=== PATIENT | male | born 1955 | race Two or more races ===

== ENCOUNTER 2021-05-29 14:07 | Inpatient (IN) | payer MEDICAID, OTHER ==
[~2021-05-29] VITALS: Ht 167.6 cm; Wt 94.7 kg
[2021-05-29] MEDS ORDERED: HYDROcodone-ACET 5/325MG TAB PO ONE (14:30)
[2021-05-29] MEDS ORDERED: HYDROmorphone HCL 2 MG/ML VL IV ONE (15:15)
[2021-05-29] MEDS ORDERED: ONDANSETRON HCL 4 MG/2 ML VIAL IV ONE (15:15)
[2021-05-29] MEDS ORDERED: SODIUM CHLORIDE 0.9% 1,000 ML IV ONE ×3 (16:00→17:45)
[2021-05-29] MEDS ORDERED: SODIUM CHLORIDE 0.9% 500 ML IVB ONE (16:00)
[2021-05-29 16:57] LABS: Basophils # (auto) 0.1 10 ^3/uL (0-0.2); Basophils % (auto) 0.6 % (0.0-2.0); Eosinophils # (auto) 0.1 10 ^3/uL (0-0.8); Hemoglobin 12.5 g/dL (13.5-17.5); Lymphocytes # (auto) 1.3 10 ^3/uL (0.4-5.4); Lymphocytes % (auto) 10.4 % (10.0-50.0); Mean Corpuscular Hemoglobin 28.3 pg (28.0-32.0); Mean Corpuscular Hgb Conc. 33.9 g/dL (32.0-36.0); Mean Corpuscular Volume 83.7 fL (80.0-100.0); Monocytes # (auto) 0.4 10 ^3/uL (0-1.3); Monocytes % (auto) 3.4 % (0.0-12.0); Neutrophils # (auto) 10.2 10 ^3/uL (1.6-8.6); Neutrophils % (auto) 84.6 % (37.0-80.0); Red Blood Cells 4.42 10^6/uL (4.5-5.90); Red Cell Distribution Width 15.1 % (11.8-14.3)
[2021-05-29 17:12] LABS: INR 0.97 (0.9-1.15); Partial Thromboplastin Time 25.6 sec (23.6-33.0)
[2021-05-29 17:13] LABS: Albumin 2.7 g/dL (3.4-5.0); Calcium 8.6 mg/dL (8.5-10.1); Magnesium 2.3 mg/dL (1.6-2.6); Potassium 4.2 mmol/L (3.5-5.1)
[2021-05-29 17:16] LABS: BUN/Creatinine Ratio 14.2; Bilirubin, Total 0.7 mg/dL (0.2-1.0); Total Protein 6.6 g/dL (6.4-8.2)
[2021-05-29] MEDS ORDERED: InsuLIN REG 1unit/0.01ml Soln (100units/ml) IV ONE (17:45)
[2021-05-29] MEDS ORDERED: ONDANSETRON HCL 4 MG/2 ML VIAL IV PRN (21:00)
[2021-05-29] MEDS ORDERED: DEXTROSE (50%) 50ML SYRG IV PRN (21:00)
[2021-05-29] MEDS ORDERED: ACETAMINOPHEN 325 MG TAB PO PRN (21:00)
[2021-05-29] MEDS ORDERED: MORPHINE SULFATE 4 MG/ML SYR/VIAL IV PRN (21:00)
[2021-05-29] MEDS ORDERED: HYDROcodone-ACET 5/325MG TAB PO PRN (21:00)
[2021-05-30] MEDS: ACCU-CHEK COMFORT CURVE STRIP VI SCH ×5 (02:49→22:14)
[2021-05-30] MEDS: InsuLIN REG 1unit/0.01ml Soln (100units/ml) SC SCH ×5 (04:35→22:14)
[2021-05-30 08:13] LABS: Urine Bacteria NONE SEEN /hpf (None Seen); Urine Blood Negative /uL (Negative); Urine Specific Gravity 1.017 (1.001-1.035); Urine WBC 1 /hpf (0 - 3)
[2021-05-30] MEDS: PANTOPRAZOLE 40 MG TAB PO SCH (10:04)
[2021-05-30 12:33] LABS: Basophils # (auto) 0.1 10 ^3/uL (0-0.2); Basophils % (auto) 0.5 % (0.0-2.0); Eosinophils # (auto) 0.1 10 ^3/uL (0-0.8); Eosinophils % (auto) 0.8 % (0.0-7.0); Hematocrit 34.3 % (41.0-53.0); Hemoglobin 11.6 g/dL (13.5-17.5); Lymphocytes # (auto) 1.9 10 ^3/uL (0.4-5.4); Lymphocytes % (auto) 14.1 % (10.0-50.0); Mean Corpuscular Hemoglobin 28.7 pg (28.0-32.0); Mean Corpuscular Hgb Conc. 33.7 g/dL (32.0-36.0); Mean Corpuscular Volume 85.2 fL (80.0-100.0); Monocytes # (auto) 1.2 10 ^3/uL (0-1.3); Monocytes % (auto) 8.8 % (0.0-12.0); Neutrophils # (auto) 10.1 10 ^3/uL (1.6-8.6); Neutrophils % (auto) 75.8 % (37.0-80.0); Red Blood Cells 4.03 10^6/uL (4.5-5.90); Red Cell Distribution Width 14.8 % (11.8-14.3); White Blood Cell 13.2 10^3/uL (4.4-10.8)
[2021-05-30] MEDS ORDERED: amLODIPine BESYLATE 5 MG TAB PO ONE (12:45)
[2021-05-30] MEDS ORDERED: INSULIN LANTUS (GLARGINE) 1 /0.01ml (100units/ml) SC ONE (12:45)
[2021-05-30 12:53] LABS: Albumin 2.6 g/dL (3.4-5.0); Calcium 8.1 mg/dL (8.5-10.1)
[2021-05-30 12:56] LABS: BUN/Creatinine Ratio 17.3; Bilirubin, Total 0.8 mg/dL (0.2-1.0); Total Protein 5.7 g/dL (6.4-8.2)
[2021-05-30 16:44] VITALS: BP 188/85
[2021-05-30] MEDS: hydrALAZINE HCL 20 MG/ML VL IV SCH (18:00)
[2021-05-30] MEDS ORDERED: LOSA-69 PO (18:37)
[2021-05-30 22:00] VITALS: BP 142/67
[2021-05-31 05:00] VITALS: BP 150/60
[2021-05-31] MEDS: hydrALAZINE HCL 20 MG/ML VL IV SCH ×4 (06:00→18:37)
[2021-05-31] MEDS: ACCU-CHEK COMFORT CURVE STRIP VI SCH ×4 (06:44→22:00)
[2021-05-31] MEDS: InsuLIN REG 1unit/0.01ml Soln (100units/ml) SC SCH ×4 (06:44→22:00)
[2021-05-31 07:14] LABS: BUN/Creatinine Ratio 15.9; Calcium 8.2 mg/dL (8.5-10.1); Potassium 3.5 mmol/L (3.5-5.1)
[2021-05-31 09:00] VITALS: BP 139/61
[2021-05-31] MEDS: PANTOPRAZOLE 40 MG TAB PO SCH (10:00)
[2021-05-31] MEDS: INSULIN LANTUS (GLARGINE) 1 /0.01ml (100units/ml) SC SCH (10:40)
[2021-05-31] MEDS: amLODIPine BESYLATE 5 MG TAB PO SCH (10:40)
[2021-05-31] MEDS ORDERED: MIDAZOLAM HCL 2MG/2ML 2ml VIAL (1mg/ml) ONE ×2 (11:42→12:05)
[2021-05-31] MEDS ORDERED: fentaNYL CITRATE 100 MCG/2 ML VL ONE (11:42)
[2021-05-31] MEDS ORDERED: MEPERIDINE HCL (25 MG/ML) 1ML VIAL ONE (11:42)
[2021-05-31] MEDS ORDERED: TETRACAINE 1% INJ 2 ML VIAL IJ ONE (11:44)
[2021-05-31] MEDS ORDERED: DexAMETHasone SOD PHOS 10MG/1ML VIAL INJ ONE (12:04)
[2021-05-31] MEDS ORDERED: MORPHINE SULFATE 4 MG/ML SYR/VIAL IV PRN (12:30)
[2021-05-31] MEDS ORDERED: hydrALAZINE HCL 20 MG/ML VL IV PRN (12:30)
[2021-05-31] MEDS ORDERED: HYDROmorphone HCL 2 MG/ML VL IV PRN (12:30)
[2021-05-31] MEDS ORDERED: ePHEDrine SULFATE 50 MG/ML AMP IV PRN (12:30)
[2021-05-31] MEDS ORDERED: LABETALOL HCL 5 MG/ML 4ML SYRINGE IV PRN (12:30)
[2021-05-31] MEDS ORDERED: ONDANSETRON HCL 4 MG/2 ML VIAL IV PRN (12:30)
[2021-05-31] MEDS ORDERED: MIDAZOLAM HCL 2MG/2ML 2ml VIAL (1mg/ml) IV PRN (12:30)
[2021-05-31] MEDS ORDERED: ACETAMINOPHEN 325 MG TAB PO PRN (13:15)
[2021-05-31] MEDS ORDERED: HYDROcodone-ACET 10/325MG TAB PO PRN (13:15)
[2021-05-31] MEDS: LACTATED RINGER'S 1,000 ML IV SCH ×2 (13:58→22:52)
[2021-05-31] MEDS: SODIUM CHLOR 0.9% PF (SALINE LOCK) 10ML VIAL/SYR IV SCH ×2 (14:00→22:00)
[2021-05-31] MEDS ORDERED: hydrALAZINE HCL 20 MG/ML VL IV ONE (15:45)
[2021-05-31] MEDS: ceFAZolin 2 GM in D5W 5% 100 ML IV SCH ×2 (16:38→22:00)
[2021-05-31 17:00] VITALS: BP 185/74
[2021-05-31] MEDS: TAMSULOSIN HYDROCHLORIDE 0.4 MG CAP PO SCH (18:36)
[2021-05-31 21:40] VITALS: BP 122/66
[2021-05-31] MEDS: TERAZOSIN HCL 1 MG CAP PO SCH (22:00)
[2021-06-01 05:30] VITALS: BP 143/61
[2021-06-01] MEDS: InsuLIN REG 1unit/0.01ml Soln (100units/ml) SC SCH ×4 (06:14→22:30)
[2021-06-01] MEDS: SODIUM CHLOR 0.9% PF (SALINE LOCK) 10ML VIAL/SYR IV SCH ×3 (06:15→22:29)
[2021-06-01] MEDS: hydrALAZINE HCL 20 MG/ML VL IV SCH ×4 (06:16→17:11)
[2021-06-01] MEDS: ACCU-CHEK COMFORT CURVE STRIP VI SCH ×4 (06:16→22:00)
[2021-06-01 06:28] LABS: Basophils # (auto) 0 10 ^3/uL (0-0.2); Eosinophils # (auto) 0 10 ^3/uL (0-0.8); Hematocrit 27.9 % (41.0-53.0); Hemoglobin 9.6 g/dL (13.5-17.5); Lymphocytes # (auto) 1.1 10 ^3/uL (0.4-5.4); Mean Corpuscular Hemoglobin 29.4 pg (28.0-32.0); Mean Corpuscular Hgb Conc. 34.4 g/dL (32.0-36.0); Mean Corpuscular Volume 85.4 fL (80.0-100.0); Monocytes # (auto) 1.3 10 ^3/uL (0-1.3); Monocytes % (auto) 8.4 % (0.0-12.0); Neutrophils # (auto) 13.4 10 ^3/uL (1.6-8.6); Neutrophils % (auto) 84.6 % (37.0-80.0); Red Blood Cells 3.27 10^6/uL (4.5-5.90); Red Cell Distribution Width 15.3 % (11.8-14.3); White Blood Cell 15.8 10^3/uL (4.4-10.8)
[2021-06-01 06:43] LABS: Potassium 3.6 mmol/L (3.5-5.1)
[2021-06-01 06:48] LABS: BUN/Creatinine Ratio 19.4; Calcium 7.8 mg/dL (8.5-10.1)
[2021-06-01 09:00] VITALS: BP 133/56
[2021-06-01] MEDS: PANTOPRAZOLE 40 MG TAB PO SCH (09:17)
[2021-06-01] MEDS: ENOXAPARIN SOD 40 MG/0.4 ML SYRINGE SC SCH (09:17)
[2021-06-01] MEDS: amLODIPine BESYLATE 5 MG TAB PO SCH (09:18)
[2021-06-01] MEDS: INSULIN LANTUS (GLARGINE) 1 /0.01ml (100units/ml) SC SCH (10:59)
[2021-06-01 13:00] VITALS: BP 112/45
[2021-06-01] MEDS: LACTATED RINGER'S 1,000 ML IV SCH ×2 (13:45→19:15)
[2021-06-01] MEDS ORDERED: DEXTROSE (50%) 50ML SYRG IV PRN (15:00)
[2021-06-01 17:00] VITALS: BP 135/64
[2021-06-01] MEDS: TAMSULOSIN HYDROCHLORIDE 0.4 MG CAP PO SCH (17:12)
[2021-06-01 22:00] VITALS: BP 138/64
[2021-06-01] MEDS: TERAZOSIN HCL 1 MG CAP PO SCH (22:29)
[2021-06-02 05:00] VITALS: BP 157/64
[2021-06-02] MEDS: SODIUM CHLOR 0.9% PF (SALINE LOCK) 10ML VIAL/SYR IV SCH ×3 (05:32→22:34)
[2021-06-02] MEDS: LACTATED RINGER'S 1,000 ML IV SCH ×2 (05:32→10:03)
[2021-06-02] MEDS: InsuLIN REG 1unit/0.01ml Soln (100units/ml) SC SCH ×4 (05:46→22:00)
[2021-06-02] MEDS: ACCU-CHEK COMFORT CURVE STRIP VI SCH ×4 (05:47→22:35)
[2021-06-02] MEDS: hydrALAZINE HCL 20 MG/ML VL IV SCH ×4 (05:53→17:29)
[2021-06-02 07:41] LABS: Potassium 3.3 mmol/L (3.5-5.1)
[2021-06-02 07:52] LABS: BUN/Creatinine Ratio 24.4; Calcium 7.6 mg/dL (8.5-10.1)
[2021-06-02 09:00] VITALS: BP 141/54
[2021-06-02] MEDS: PANTOPRAZOLE 40 MG TAB PO SCH (10:00)
[2021-06-02] MEDS: amLODIPine BESYLATE 5 MG TAB PO SCH (10:00)
[2021-06-02] MEDS: ENOXAPARIN SOD 40 MG/0.4 ML SYRINGE SC SCH (10:00)
[2021-06-02] MEDS: INSULIN LANTUS (GLARGINE) 1 /0.01ml (100units/ml) SC SCH (11:04)
[2021-06-02 13:00] VITALS: BP 134/50
[2021-06-02 17:00] VITALS: BP 128/51
[2021-06-02] MEDS: TAMSULOSIN HYDROCHLORIDE 0.4 MG CAP PO SCH (17:29)
[2021-06-02 22:00] VITALS: BP 151/65
[2021-06-02] MEDS: TERAZOSIN HCL 1 MG CAP PO SCH (22:33)
[2021-06-03] MEDS: hydrALAZINE HCL 20 MG/ML VL IV SCH ×4 (01:03→17:13)
[2021-06-03 05:00] VITALS: BP 153/65
[2021-06-03] MEDS: SODIUM CHLOR 0.9% PF (SALINE LOCK) 10ML VIAL/SYR IV SCH ×3 (06:00→22:08)
[2021-06-03] MEDS: HYDROcodone-ACET 10/325MG TAB PO PRN (06:41)
[2021-06-03] MEDS: ACCU-CHEK COMFORT CURVE STRIP VI SCH ×4 (06:42→22:04)
[2021-06-03] MEDS: InsuLIN REG 1unit/0.01ml Soln (100units/ml) SC SCH ×4 (06:43→22:00)
[2021-06-03 07:00] LABS: Basophils # (auto) 0 10 ^3/uL (0-0.2); Basophils % (auto) 0.3 % (0.0-2.0); Eosinophils # (auto) 0.1 10 ^3/uL (0-0.8); Eosinophils % (auto) 0.5 % (0.0-7.0); Hemoglobin 8.7 g/dL (13.5-17.5); Lymphocytes # (auto) 1.3 10 ^3/uL (0.4-5.4); Lymphocytes % (auto) 9.5 % (10.0-50.0); Mean Corpuscular Hemoglobin 29.5 pg (28.0-32.0); Mean Corpuscular Hgb Conc. 34.9 g/dL (32.0-36.0); Mean Corpuscular Volume 84.4 fL (80.0-100.0); Monocytes # (auto) 1.2 10 ^3/uL (0-1.3); Monocytes % (auto) 8.4 % (0.0-12.0); Neutrophils # (auto) 11.2 10 ^3/uL (1.6-8.6); Neutrophils % (auto) 81.3 % (37.0-80.0); Nucleated Red Blood Cells % 0.1 %; Red Blood Cells 2.96 10^6/uL (4.5-5.90); White Blood Cell 13.8 10^3/uL (4.4-10.8)
[2021-06-03 07:10] LABS: BUN/Creatinine Ratio 25.3; Calcium 7.7 mg/dL (8.5-10.1); Potassium 3.4 mmol/L (3.5-5.1)
[2021-06-03 09:00] VITALS: BP 133/59
[2021-06-03] MEDS ORDERED: levoFLOXacin 500MG 100 ML IV SCH (10:00)
[2021-06-03] MEDS: amLODIPine BESYLATE 5 MG TAB PO SCH (10:50)
[2021-06-03] MEDS: PANTOPRAZOLE 40 MG TAB PO SCH (10:53)
[2021-06-03] MEDS: ENOXAPARIN SOD 40 MG/0.4 ML SYRINGE SC SCH (10:54)
[2021-06-03] MEDS: INSULIN LANTUS (GLARGINE) 1 /0.01ml (100units/ml) SC SCH (11:38)
[2021-06-03 13:00] VITALS: BP 126/50
[2021-06-03 17:00] VITALS: BP 148/69
[2021-06-03] MEDS: TAMSULOSIN HYDROCHLORIDE 0.4 MG CAP PO SCH (17:13)
[2021-06-03 22:00] VITALS: BP 136/63
[2021-06-03] MEDS: TERAZOSIN HCL 1 MG CAP PO SCH (22:13)
[2021-06-04] MEDS: hydrALAZINE HCL 20 MG/ML VL IV SCH ×2 (01:25→06:45)
[2021-06-04 06:00] LABS: Hematocrit 25.2 % (41.0-53.0); Hemoglobin 8.5 g/dL (13.5-17.5)
[2021-06-04] MEDS: InsuLIN REG 1unit/0.01ml Soln (100units/ml) SC SCH ×4 (06:45→22:00)
[2021-06-04] MEDS: ACCU-CHEK COMFORT CURVE STRIP VI SCH ×4 (06:45→21:29)
[2021-06-04] MEDS: SODIUM CHLOR 0.9% PF (SALINE LOCK) 10ML VIAL/SYR IV SCH ×3 (06:46→21:29)
[2021-06-04 08:28] VITALS: BP 135/62
[2021-06-04] MEDS: amLODIPine BESYLATE 5 MG TAB PO SCH (10:14)
[2021-06-04] MEDS: ENOXAPARIN SOD 40 MG/0.4 ML SYRINGE SC SCH (10:14)
[2021-06-04] MEDS: PANTOPRAZOLE 40 MG TAB PO SCH (10:14)
[2021-06-04] MEDS: INSULIN LANTUS (GLARGINE) 1 /0.01ml (100units/ml) SC SCH (11:29)
[2021-06-04 13:49] VITALS: BP 143/62
[2021-06-04] MEDS ORDERED: LOSARTAN POTASSIUM 25 MG TAB PO SCH (15:08)
[2021-06-04 17:25] VITALS: BP 139/61
[2021-06-04] MEDS: TAMSULOSIN HYDROCHLORIDE 0.4 MG CAP PO SCH (18:27)
[2021-06-04 22:00] VITALS: BP 142/64
[2021-06-05 05:00] VITALS: BP 150/59
[2021-06-05] MEDS: SODIUM CHLOR 0.9% PF (SALINE LOCK) 10ML VIAL/SYR IV SCH ×3 (05:43→22:00)
[2021-06-05] MEDS: InsuLIN REG 1unit/0.01ml Soln (100units/ml) SC SCH ×4 (06:09→22:02)
[2021-06-05] MEDS: ACCU-CHEK COMFORT CURVE STRIP VI SCH ×4 (06:10→22:10)
[2021-06-05 07:54] LABS: Basophils # (auto) 0 10 ^3/uL (0-0.2); Basophils % (auto) 0.3 % (0.0-2.0); Eosinophils # (auto) 0.2 10 ^3/uL (0-0.8); Eosinophils % (auto) 1.9 % (0.0-7.0); Hematocrit 25.6 % (41.0-53.0); Hemoglobin 8.8 g/dL (13.5-17.5); Lymphocytes # (auto) 1.8 10 ^3/uL (0.4-5.4); Lymphocytes % (auto) 13.8 % (10.0-50.0); Mean Corpuscular Hemoglobin 28.8 pg (28.0-32.0); Mean Corpuscular Hgb Conc. 34.3 g/dL (32.0-36.0); Mean Corpuscular Volume 83.9 fL (80.0-100.0); Monocytes # (auto) 1.2 10 ^3/uL (0-1.3); Neutrophils # (auto) 9.7 10 ^3/uL (1.6-8.6); Red Blood Cells 3.04 10^6/uL (4.5-5.90); Red Cell Distribution Width 14.9 % (11.8-14.3)
[2021-06-05 08:00] VITALS: BP 143/62
[2021-06-05 08:01] LABS: Potassium 3.7 mmol/L (3.5-5.1)
[2021-06-05 08:05] LABS: BUN/Creatinine Ratio 24.2; Calcium 8.1 mg/dL (8.5-10.1)
[2021-06-05 09:00] VITALS: BP 141/75
[2021-06-05] MEDS: INSULIN LANTUS (GLARGINE) 1 /0.01ml (100units/ml) SC SCH (10:00)
[2021-06-05] MEDS ORDERED: LOSARTAN POTASSIUM 25 MG TAB PO ONE (10:30)
[2021-06-05] MEDS: PANTOPRAZOLE 40 MG TAB PO SCH (10:32)
[2021-06-05] MEDS: amLODIPine BESYLATE 5 MG TAB PO SCH (10:33)
[2021-06-05] MEDS: ENOXAPARIN SOD 40 MG/0.4 ML SYRINGE SC SCH (10:33)
[2021-06-05] MEDS ORDERED: LACTULOSE 20Gm/30ML SOLN PO ONE (12:15)
[2021-06-05 13:00] VITALS: BP 150/58
[2021-06-05 16:58] VITALS: BP 154/65
[2021-06-05] MEDS: TAMSULOSIN HYDROCHLORIDE 0.4 MG CAP PO SCH (17:49)
[2021-06-05 22:00] VITALS: BP 153/65
[2021-06-05] MEDS: LACTULOSE 20Gm/30ML SOLN PO SCH (22:45)
[2021-06-06 05:12] VITALS: BP 146/85
[2021-06-06] MEDS: ACCU-CHEK COMFORT CURVE STRIP VI SCH ×4 (06:19→21:32)
[2021-06-06] MEDS: SODIUM CHLOR 0.9% PF (SALINE LOCK) 10ML VIAL/SYR IV SCH ×3 (06:19→21:32)
[2021-06-06] MEDS: InsuLIN REG 1unit/0.01ml Soln (100units/ml) SC SCH ×4 (06:19→21:33)
[2021-06-06 09:06] VITALS: BP 150/76
[2021-06-06] MEDS: LACTULOSE 20Gm/30ML SOLN PO SCH ×2 (09:10→21:31)
[2021-06-06] MEDS: LOSARTAN POTASSIUM 25 MG TAB PO SCH (09:11)
[2021-06-06] MEDS: PANTOPRAZOLE 40 MG TAB PO SCH (09:12)
[2021-06-06] MEDS: ENOXAPARIN SOD 40 MG/0.4 ML SYRINGE SC SCH (09:12)
[2021-06-06] MEDS: amLODIPine BESYLATE 5 MG TAB PO SCH (09:12)
[2021-06-06] MEDS: INSULIN LANTUS (GLARGINE) 1 /0.01ml (100units/ml) SC SCH (09:22)
[2021-06-06 12:46] VITALS: BP 149/68
[2021-06-06 16:49] VITALS: BP 140/62
[2021-06-06] MEDS: TAMSULOSIN HYDROCHLORIDE 0.4 MG CAP PO SCH (17:13)
[2021-06-06] MEDS: GABAPENTIN 100 MG CAP PO SCH (21:32)
[2021-06-06 22:00] VITALS: BP 149/55
[2021-06-07 05:00] VITALS: BP 146/39
[2021-06-07] MEDS: SODIUM CHLOR 0.9% PF (SALINE LOCK) 10ML VIAL/SYR IV SCH ×3 (05:47→22:01)
[2021-06-07] MEDS: ACCU-CHEK COMFORT CURVE STRIP VI SCH ×4 (06:35→21:55)
[2021-06-07] MEDS: InsuLIN REG 1unit/0.01ml Soln (100units/ml) SC SCH ×4 (06:36→22:01)
[2021-06-07 09:00] VITALS: BP 149/63
[2021-06-07] MEDS ORDERED: FLEET ENEMA(ADULT) 135 ML PR ONE (09:30)
[2021-06-07] MEDS: ENOXAPARIN SOD 40 MG/0.4 ML SYRINGE SC SCH (10:39)
[2021-06-07] MEDS: LOSARTAN POTASSIUM 25 MG TAB PO SCH (10:39)
[2021-06-07] MEDS: LACTULOSE 20Gm/30ML SOLN PO SCH ×2 (10:39→21:55)
[2021-06-07] MEDS: amLODIPine BESYLATE 5 MG TAB PO SCH (10:40)
[2021-06-07] MEDS: INSULIN LANTUS (GLARGINE) 1 /0.01ml (100units/ml) SC SCH (10:41)
[2021-06-07 12:36] VITALS: BP 120/59
[2021-06-07 16:34] VITALS: BP 121/66
[2021-06-07] MEDS: TAMSULOSIN HYDROCHLORIDE 0.4 MG CAP PO SCH (17:19)
[2021-06-07] MEDS: GABAPENTIN 100 MG CAP PO SCH (21:55)
[2021-06-07] MEDS: HYDROcodone-ACET 10/325MG TAB PO PRN (21:56)
[2021-06-07 22:00] VITALS: BP 121/141
[2021-06-08 04:28] VITALS: BP 134/61
[2021-06-08] MEDS: SODIUM CHLOR 0.9% PF (SALINE LOCK) 10ML VIAL/SYR IV SCH ×3 (05:19→21:55)
[2021-06-08 06:08] LABS: Urine Bacteria MANY /hpf (None Seen); Urine Blood TRACE /uL (Negative); Urine Mucus FEW (None Seen); Urine Specific Gravity 1.011 (1.001-1.035); Urine WBC 1 /hpf (0 - 3)
[2021-06-08] MEDS: ACCU-CHEK COMFORT CURVE STRIP VI SCH ×4 (06:58→21:55)
[2021-06-08] MEDS: InsuLIN REG 1unit/0.01ml Soln (100units/ml) SC SCH ×4 (06:59→21:55)
[2021-06-08 07:00] LABS: Basophils # (auto) 0.1 10 ^3/uL (0-0.2); Basophils % (auto) 0.5 % (0.0-2.0); Eosinophils # (auto) 0.4 10 ^3/uL (0-0.8); Eosinophils % (auto) 3.1 % (0.0-7.0); Hematocrit 25.4 % (41.0-53.0); Hemoglobin 8.5 g/dL (13.5-17.5); Mean Corpuscular Hemoglobin 28.3 pg (28.0-32.0); Mean Corpuscular Hgb Conc. 33.6 g/dL (32.0-36.0); Mean Corpuscular Volume 84.2 fL (80.0-100.0); Monocytes # (auto) 1.1 10 ^3/uL (0-1.3); Monocytes % (auto) 9.3 % (0.0-12.0); Neutrophils # (auto) 8.8 10 ^3/uL (1.6-8.6); Neutrophils % (auto) 71.1 % (37.0-80.0); Nucleated Red Blood Cells % 0.1 %; Red Blood Cells 3.02 10^6/uL (4.5-5.90); Red Cell Distribution Width 14.7 % (11.8-14.3); White Blood Cell 12.3 10^3/uL (4.4-10.8)
[2021-06-08 07:15] LABS: BUN/Creatinine Ratio 21.1; Potassium 4.8 mmol/L (3.5-5.1)
[2021-06-08 09:00] VITALS: BP 153/69
[2021-06-08] MEDS: LACTULOSE 20Gm/30ML SOLN PO SCH ×2 (09:41→21:53)
[2021-06-08] MEDS: LOSARTAN POTASSIUM 25 MG TAB PO SCH (09:41)
[2021-06-08] MEDS: RIVAROXABAN 10 MG TAB PO SCH (09:42)
[2021-06-08] MEDS: amLODIPine BESYLATE 5 MG TAB PO SCH (09:42)
[2021-06-08] MEDS: HYDROcodone-ACET 10/325MG TAB PO PRN (10:13)
[2021-06-08] MEDS: INSULIN LANTUS (GLARGINE) 1 /0.01ml (100units/ml) SC SCH (11:08)
[2021-06-08 13:42] VITALS: BP 152/71
[2021-06-08 16:32] VITALS: BP 137/61
[2021-06-08] MEDS: TAMSULOSIN HYDROCHLORIDE 0.4 MG CAP PO SCH (17:38)
[2021-06-08 21:51] VITALS: BP 143/53
[2021-06-08] MEDS: GABAPENTIN 100 MG CAP PO SCH (21:53)
[2021-06-09 05:00] VITALS: BP 144/68
[2021-06-09] MEDS: InsuLIN REG 1unit/0.01ml Soln (100units/ml) SC SCH ×4 (06:19→21:21)
[2021-06-09] MEDS: SODIUM CHLOR 0.9% PF (SALINE LOCK) 10ML VIAL/SYR IV SCH ×3 (06:22→21:21)
[2021-06-09] MEDS: ACCU-CHEK COMFORT CURVE STRIP VI SCH ×4 (06:22→21:22)
[2021-06-09 09:43] VITALS: BP 142/79
[2021-06-09] MEDS: amLODIPine BESYLATE 5 MG TAB PO SCH (10:15)
[2021-06-09] MEDS: RIVAROXABAN 10 MG TAB PO SCH (10:15)
[2021-06-09] MEDS: LACTULOSE 20Gm/30ML SOLN PO SCH ×2 (10:15→21:20)
[2021-06-09] MEDS: LOSARTAN POTASSIUM 25 MG TAB PO SCH (10:15)
[2021-06-09] MEDS: INSULIN LANTUS (GLARGINE) 1 /0.01ml (100units/ml) SC SCH (10:16)
[2021-06-09 13:00] VITALS: BP 130/67
[2021-06-09] MEDS: HYDROcodone-ACET 10/325MG TAB PO PRN (14:06)
[2021-06-09 17:00] VITALS: BP 136/61
[2021-06-09] MEDS: TAMSULOSIN HYDROCHLORIDE 0.4 MG CAP PO SCH (17:43)
[2021-06-09] MEDS: GABAPENTIN 100 MG CAP PO SCH (21:22)
[2021-06-09 22:00] VITALS: BP 142/58
[2021-06-10 05:00] VITALS: BP 158/63
[2021-06-10] MEDS: SODIUM CHLOR 0.9% PF (SALINE LOCK) 10ML VIAL/SYR IV SCH ×3 (06:19→22:06)
[2021-06-10] MEDS: ACCU-CHEK COMFORT CURVE STRIP VI SCH ×4 (06:20→22:07)
[2021-06-10] MEDS: InsuLIN REG 1unit/0.01ml Soln (100units/ml) SC SCH ×4 (06:20→22:11)
[2021-06-10 09:00] VITALS: BP 161/93
[2021-06-10] MEDS: amLODIPine BESYLATE 5 MG TAB PO SCH (09:31)
[2021-06-10] MEDS: RIVAROXABAN 10 MG TAB PO SCH (09:32)
[2021-06-10] MEDS: LOSARTAN POTASSIUM 25 MG TAB PO SCH (09:32)
[2021-06-10] MEDS: LACTULOSE 20Gm/30ML SOLN PO SCH (09:32)
[2021-06-10] MEDS: INSULIN LANTUS (GLARGINE) 1 /0.01ml (100units/ml) SC SCH (09:35)
[2021-06-10] MEDS: metFORMIN HYDROCHLORIDE 500 MG TAB PO SCH (11:35)
[2021-06-10 13:00] VITALS: BP 154/72
[2021-06-10 17:00] VITALS: BP 155/76
[2021-06-10 17:57] LABS: Basophils # (auto) 0.1 10 ^3/uL (0-0.2); Basophils % (auto) 0.6 % (0.0-2.0); Eosinophils # (auto) 0.2 10 ^3/uL (0-0.8); Eosinophils % (auto) 1.3 % (0.0-7.0); Hematocrit 27.2 % (41.0-53.0); Hemoglobin 9.2 g/dL (13.5-17.5); Lymphocytes # (auto) 1.6 10 ^3/uL (0.4-5.4); Lymphocytes % (auto) 10.4 % (10.0-50.0); Mean Corpuscular Hemoglobin 28.4 pg (28.0-32.0); Mean Corpuscular Hgb Conc. 33.6 g/dL (32.0-36.0); Mean Corpuscular Volume 84.4 fL (80.0-100.0); Monocytes # (auto) 1.2 10 ^3/uL (0-1.3); Monocytes % (auto) 7.3 % (0.0-12.0); Neutrophils # (auto) 12.7 10 ^3/uL (1.6-8.6); Neutrophils % (auto) 80.4 % (37.0-80.0); Red Blood Cells 3.23 10^6/uL (4.5-5.90); Red Cell Distribution Width 14.9 % (11.8-14.3); White Blood Cell 15.8 10^3/uL (4.4-10.8)
[2021-06-10] MEDS ORDERED: TAMSULOSIN HYDROCHLORIDE 0.4 MG CAP PO SCH (18:00)
[2021-06-10 22:00] VITALS: BP 127/65
[2021-06-10] MEDS: GABAPENTIN 100 MG CAP PO SCH (22:11)
[2021-06-11 05:00] VITALS: BP 159/73
[2021-06-11] MEDS: InsuLIN REG 1unit/0.01ml Soln (100units/ml) SC SCH ×2 (05:48→12:00)
[2021-06-11] MEDS: SODIUM CHLOR 0.9% PF (SALINE LOCK) 10ML VIAL/SYR IV SCH (05:48)
[2021-06-11] MEDS: ACCU-CHEK COMFORT CURVE STRIP VI SCH ×2 (05:48→12:00)
[2021-06-11 07:34] LABS: Basophils # (auto) 0.1 10 ^3/uL (0-0.2); Basophils % (auto) 0.5 % (0.0-2.0); Eosinophils # (auto) 0.2 10 ^3/uL (0-0.8); Hemoglobin 8.4 g/dL (13.5-17.5)
[2021-06-11 07:38] LABS: Eosinophils % (auto) 1.6 % (0.0-7.0); Hematocrit 24.4 % (41.0-53.0); Lymphocytes # (auto) 1.9 10 ^3/uL (0.4-5.4); Mean Corpuscular Hemoglobin 28.9 pg (28.0-32.0); Mean Corpuscular Hgb Conc. 34.5 g/dL (32.0-36.0); Mean Corpuscular Volume 83.9 fL (80.0-100.0); Monocytes # (auto) 1.1 10 ^3/uL (0-1.3); Monocytes % (auto) 7.3 % (0.0-12.0); Neutrophils # (auto) 11.6 10 ^3/uL (1.6-8.6); Neutrophils % (auto) 77.6 % (37.0-80.0); Red Blood Cells 2.91 10^6/uL (4.5-5.90); Red Cell Distribution Width 14.9 % (11.8-14.3)
[2021-06-11 09:00] VITALS: BP 153/79
[2021-06-11] MEDS: amLODIPine BESYLATE 5 MG TAB PO SCH (09:31)
[2021-06-11] MEDS: RIVAROXABAN 10 MG TAB PO SCH (09:32)
[2021-06-11] MEDS: LOSARTAN POTASSIUM 25 MG TAB PO SCH (09:32)
[2021-06-11] MEDS: INSULIN LANTUS (GLARGINE) 1 /0.01ml (100units/ml) SC SCH (09:34)
[2021-06-11] MEDS: metFORMIN HYDROCHLORIDE 500 MG TAB PO SCH (12:28)
[2021-06-11 13:00] VITALS: BP 158/68
== END 2021-06-11 16:46 | disposition home or self-care (01) | DRG 308 ==
LOC: EDBD 14:07 → ER 14:07 → OVERFLOW 20:48 → WEST WING 05-30 14:55
PROVIDERS: ADMIT Nurse Practitioner; ATTEND Internal Medicine
PROC: 0QS606Z Reposition Right Upper Femur with Intramedullary Internal Fixation Device, Open Approach (ICD-10-PCS; principal; 2021-05-31 11:45)
DX: S72.21XA Displaced subtrochanteric fracture of right femur, initial encounter for closed fracture (principal); N17.9 Acute kidney failure, unspecified; E44.0 Moderate protein-calorie malnutrition; E11.21 Type 2 diabetes mellitus with diabetic nephropathy; E11.319 Type 2 diabetes mellitus with unspecified diabetic retinopathy without macular edema; N13.8 Other obstructive and reflux uropathy; E11.40 Type 2 diabetes mellitus with diabetic neuropathy, unspecified; D62 Acute posthemorrhagic anemia; D72.829 Elevated white blood cell count, unspecified; Z68.34 Body mass index [BMI] 34.0-34.9, adult; E11.22 Type 2 diabetes mellitus with diabetic chronic kidney disease; I87.8 Other specified disorders of veins; I16.0 Hypertensive urgency; I12.9 Hypertensive chronic kidney disease with stage 1 through stage 4 chronic kidney disease, or unspecified chronic kidney disease; N18.31 Chronic kidney disease, stage 3a; E66.9 Obesity, unspecified; N32.0 Bladder-neck obstruction; Z20.822 Contact with and (suspected) exposure to COVID-19; N40.1 Benign prostatic hyperplasia with lower urinary tract symptoms; W10.1XXA Fall (on)(from) sidewalk curb, initial encounter; Y93.89 Activity, other specified; Y92.89 Other specified places as the place of occurrence of the external cause; Z87.11 Personal history of peptic ulcer disease; Y99.8 Other external cause status
CPT/HCPCS: 36415; 71045; 72192; 73502; 76000; 76775; 80048; 80053; 81001; 82565; 82962; 83036; 83690; 83735; 84154; 84484; 85014; 85018; 85025; 85048; 85610; 85730; 86850; 86900; 86901; 87086; 87426; 93005; 93306; 93971; 96361; 96374; 96375; 97110; 97116; 97163; 97530; C1713; C1769; G0378; J0690; J1100; J1815; J1956; J2250; J2405; J7060

== ENCOUNTER 2021-06-19 13:01 | Emergency (ER) | payer MEDICAID ==
[~2021-06-19] VITALS: Ht 177.8 cm; Wt 77.1 kg
[~2021-06-19 13:01] MED LIST: LOSA-69 PO
[2021-06-19 13:13] VITALS: BP 134/86
[2021-06-19 14:11] LABS: Urine Bacteria NONE SEEN /hpf (None Seen); Urine Blood 1+ /uL (Negative); Urine Specific Gravity 1.012 (1.001-1.035); Urine WBC 38 /hpf (0 - 3); Urine WBC Clumps PRESENT /hpf (None Seen)
[2021-06-19] MEDS ORDERED: LEVO500T31 PO (17:41)
[2021-06-19] MEDS ORDERED: PERCOT PO (17:41)
[2021-06-19] MEDS ORDERED: cefTRIAXone SOD 1,000 MG VL IM ONE (17:45)
== END 2021-06-19 17:43 | disposition home or self-care (01) ==
LOC: ER 13:01
DX: N39.0 Urinary tract infection, site not specified (principal); E11.9 Type 2 diabetes mellitus without complications; I10 Essential (primary) hypertension
CPT/HCPCS: 74176; 81001; 96372; 99284; J0696

== ENCOUNTER 2021-08-12 15:05 | Emergency (ER) | payer SELFPAY ==
[~2021-08-12] VITALS: Ht 175.3 cm; Wt 72.6 kg
[~2021-08-12 15:05] MED LIST changes: +LEVO500T31 PO; +PERCOT PO
[2021-08-12 15:15] VITALS: BP 195/43
== END 2021-08-12 23:53 | disposition home or self-care (01) ==
LOC: ER 15:05
DX: S71.011D Laceration without foreign body, right hip, subsequent encounter (principal); E11.9 Type 2 diabetes mellitus without complications; I10 Essential (primary) hypertension; X58.XXXD Exposure to other specified factors, subsequent encounter